=== PATIENT | female | born 1990 | race Caucasian/White ===

== ENCOUNTER 2020-05-28 19:22 | Emergency (ER) | payer OTHER ==
[~2020-05-28] VITALS: Ht 170.2 cm; Wt 81.6 kg
--- NOTE | 2020-05-28 19:30 | NUR ---
Dr. Dangelo at bedside for MSE.
[2020-05-28] MEDS ORDERED: NITR100C6 PO (19:36)
--- NOTE | 2020-05-28 19:58 | NUR ---
Xray at bedside.
--- NOTE | 2020-05-28 20:34 | NUR ---
Patient discharged to home in stable condition. Written and verbal after care instructions given. Patient verbalizes understanding of instructions. Stressed follow up or return to ER for worsening s/s. Patient ambulated out of ER with steady gait, no acute signs of distress, VSS, all belongings taken, provided with a CD and result of Xray.
[2020-05-28 20:36] VITALS: BP 100/67
== END 2020-05-28 20:36 | disposition home or self-care (01) ==
LOC: ER 19:24
DX: S52.531A Colles' fracture of right radius, initial encounter for closed fracture (principal); S52.611A Displaced fracture of right ulna styloid process, initial encounter for closed fracture; W18.30XA Fall on same level, unspecified, initial encounter; Y92.89 Other specified places as the place of occurrence of the external cause
CPT/HCPCS: 73110; A4663